=== PATIENT | male | born 1990 | race American Indian/Alaskan Native ===

== ENCOUNTER 2021-06-04 16:06 | Emergency (ER) | payer SELFPAY ==
[2021-06-04 16:31] VITALS: BP 132/39
--- NOTE | 2021-06-04 17:08 | Emergency Department Report ---
ED Laceration HPI - HPI Chief Complaint: Laceration/Recheck/Suture Stated Complaint: DEEP GASH Time Seen by Provider: 06/04/21 16:42 Occurred When: Today (around 9 am) Severity: mild Tetanus Status: Not up to Date Laceration Symptoms: Yes Pain, No Foreign Body Sensation, No Numbness, No Weakness Other History: 30-year-old male presents to the ER today with complaints of left thumb laceration. 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 He reports pain mainly around the wound and with movement of the thumb but reports no additional symptoms. He is right-hand dominant. ED Review of Systems ROS: Stated complaint: DEEP GASH Other details as noted in HPI Comment: All other systems reviewed and negative Respiratory: denies: cough, shortness of breath, wheezing Cardiovascular: denies: chest pain, palpitations Skin: other (laceration thumb) Neurological: denies: headache, weakness, paresthesias Psychiatric: denies: anxiety, depression, auditory hallucinations, visual hallucinations, homicidal thoughts, suicidal thoughts Hematological/Lymphatic: denies: easy bleeding, easy bruising, swollen glands ED Past Medical Hx - Past Medical History Previous Medical History?: No - Surgical History Past Surgical History?: No - Medications Home Medications: Home Medications Medication Instructions Recorded Confirmed Last Taken Type Ibuprofen [Motrin] 600 mg PO Q8H PRN #30 tablet 06/04/21 Unknown Rx Laceration Physical Exam - Exam General: Vital signs noted. No distress. Alert and acting appropriately. Wound Length (cm): 1 (actual length 1.5) Laceration Location: Other (Radial aspect of the left thumb near the IP joint; laceration is superficial, wound edges are well approximated, bleeding controlled; wound repair not indicated. Patient has full range of motion of the thumb. No apparent bony or tendon injury. cap refill nl; sensation intact) Laceration Exam: Yes Normal Distal CMS, No Foreign Body, No Exposed Tendon, Vessel, or Nerve, No Tendon Injury ED Course Vital Signs 06/04/21 16:29 Temperature 98.3 F Pulse Rate 84 Respiratory 16 Rate Blood Pressure 132/39 [Left] O2 Sat by Pulse 100 Oximetry Critical care attestation.: If time is entered above; I have spent that time in minutes in the direct care of this critically ill patient, excluding procedure time. ED Disposition Clinical Impression: Thumb laceration Disposition: 01 HOME / SELF CARE / HOMELESS Is pt being admited?: No Does the pt Need Aspirin: No Condition: Stable Instructions: Nonsutured Laceration Care Additional Instructions: Keep the wound clean daily with soap and water. Wash briefly. Dry well after each washing. Apply thin layer of Neosporin after each cleaning. Cover with a Band-Aid. Do this daily until it heals. Do not keep your hand soaking in water at all times. Take the ibuprofen as prescribed help with any pain. Return to the ER if any signs and symptoms of infection such as pus drainage, increasing redness or swelling and pain. Prescriptions: Ibuprofen [Motrin] 600 mg PO Q8H PRN #30 tablet PRN Reason: Pain Referrals: LYUBOV KOENIG MD [Staff Physician] - 3-5 Days Forms: Work/School Release Form(ED) Time of Disposition: 17:08
[2021-06-04] MEDS: TETANUS,DIPH,PERTUSS(ACELL) VACCINE 0.5 ML SYRINGE IM ONE (17:33)
== END 2021-06-04 18:11 | disposition home or self-care (01) ==
LOC: ED 16:06
DX: S61.012A Laceration without foreign body of left thumb without damage to nail, initial encounter (principal); X58.XXXA Exposure to other specified factors, initial encounter; Y93.89 Activity, other specified; Y92.89 Other specified places as the place of occurrence of the external cause; Y99.8 Other external cause status
CPT/HCPCS: 90471; 90715; 99282